=== PATIENT | male | born 1990 | race Asian ===

== ENCOUNTER 2019-08-18 13:41 | Emergency (ER) | payer BC, OTHER ==
[~2019-08-18] VITALS: Ht 180.3 cm; Wt 88.5 kg
[2019-08-18 14:12] VITALS: BP 110/71
[2019-08-18 14:46] VITALS: BP 110/71
--- NOTE | 2019-08-18 14:48 | Emergency Room Report ---
History of Present Illness General Chief Complaint: Chest Pain Source: Patient Present Illness HPI Patient presents with complaints of pain that he felt in the left upper chest area last night is while he was going to sleep a sharp shooting pain lasted for few seconds Patient denies any pleurisy denies any shortness of breath denies any discomfort this morning or throughout the day today Denies any back or flank pain Denies any recent trauma Denies any change with movement or exertion Allergies: Coded Allergies: No Known Allergies (Unverified , 08/18/19) COVID-19 Screening Contact w/high risk pt: No Recent Travel to affected area: No Experienced COVID-19 symptoms?: No COVID-19 Testing performed DIE MAKER STAMPING: No Patient History Past Medical History: see triage record Reviewed Nursing Documentation: PMH: Agreed; PSxH: Agreed Nursing Documentation-PMH Past Medical History: No History, Except For Review of Systems All Other Systems: negative except mentioned in HPI Physical Exam Vital Signs Date Time Temp Pulse Resp B/P (MAP) Pulse Ox O2 Delivery O2 Flow Rate FiO2 08/18/19 13:48 98.2 60 20 110/71 (84) 96 Room Air Sp02 EP Interpretation: reviewed, normal General Appearance: well appearing, no apparent distress Head: normocephalic, atraumatic Eyes: bilateral eye PERRL, bilateral eye EOMI ENT: hearing grossly normal, normal pharynx, TMs + canals normal, uvula midline Neck: full range of motion, supple, no meningismus, no bony tend Respiratory: lungs clear, normal breath sounds, no rhonchi, no respiratory distress, no retraction, no accessory muscle use Cardiovascular #1: normal peripheral pulses, regular rate, rhythm, no edema, no gallop, no JVD, no murmur Gastrointestinal: normal bowel sounds, non tender, soft, no mass, no organomegaly, non-distended, no guarding, no hernia, no pulsatile mass, no rebound Genitourinary: no CVA tenderness Musculoskeletal: normal inspection Neurologic: motor strength/tone normal, bedspread inspector III-XII nml as tested, oriented x3 , sensory intact, responsive Psychiatric: mood/affect normal Skin: no rash Lymphatic: normal inspection, no adenopathy Medical Decision Making Diagnostic Impression: Primary Impression: Chest pain ER Course Patient is a fairly complex patient with multiple differential to consideration including but not limited to cardiac cardiopulmonary and vascular emergencies Patient has a benign medical evaluation cardiac factor score is low Patient's EKG and chest x-ray are normal again remains asymptomatic throughout his stay here patient did ask me regarding anxiety and possible association with this pain We did discuss regarding multiple other medical conditions that need to be ruled out Prior to calling this anxiety patient understands this and will follow closely EKG Diagnostic Results Rate: normal Rhythm: NSR ST Segments: no acute changes Rhythm Strip Diag. Results EP Interpretation: yes Rate: 60 Rhythm: NSR, no PVC's, no ectopy Chest X-Ray Diagnostic Results Chest X-Ray Diagnostic Results : Chest X-Ray Ordered: Yes # of Views/Limited/Complete: 1 View Indication: Chest Pain EP Interpretation: Yes Interpretation: no consolidation, no effusion, no pneumothorax Impression: No acute disease Electronically Signed by: Reji Velazco DO Last Vital Signs Date Time Temp Pulse Resp B/P (MAP) Pulse Ox O2 Delivery O2 Flow Rate FiO2 08/18/19 14:12 98.2 60 20 110/71 96 Room Air Status: improved Disposition: HOME, SELF-CARE Condition: Improved [facility]: [facility] Patient Instructions: Nonspecific Chest Pain Additional Instructions: Patient is provided with the discharge instructions notified to follow up with primary doctor in the next 2-3 days otherwise return to the er with any worsening symptoms. Please note that this report is being documented using [employer] technology. This can lead to erroneous entry secondary to incorrect interpretation by the dictating instrument. Reji Velazco DO Aug 18, 2019 14:48
--- NOTE | 2019-08-18 19:00 | Diagnostic Imaging Report ---
Indication: Chest pain Technique: One view of the chest Comparison: none Findings: Lungs and pleural spaces are clear. Heart size is normal. Impression: No acute process
== END 2019-08-18 14:45 | disposition home or self-care (01) ==
LOC: EMR 14:40
DX: R07.9 Chest pain, unspecified (principal)
CPT/HCPCS: 71045; 93005; 99283

== ENCOUNTER 2020-02-17 20:05 | Emergency (ER) | payer BC, OTHER ==
[~2020-02-17] VITALS: Ht 182.9 cm; Wt 104.3 kg
[2020-02-17] MEDS ORDERED: AMOXIL250 MG ORAL (20:16)
[2020-02-17 20:55] VITALS: BP 124/71
[2020-02-17] MEDS ORDERED: DEBROX15 M1 LEFT EAR (21:02)
[2020-02-17] MEDS ORDERED: AUGMENTIN 875-1 EAC1 ORAL (21:02)
[2020-02-17 21:10] VITALS: BP 122/80
--- NOTE | 2020-02-22 00:15 | Emergency Room Report ---
History of Present Illness General Chief Complaint: Earache Source: Patient Present Illness HPI 29-year-old male presents to ED complaining of right ear pain. Having pain for the last few weeks. Dull, 8 out of 10, radiating to the jaw. Denies fevers or chills. Denies neck pain or neck stiffness. Was seen by PMD and prescribed antibiotics. Currently taking amoxicillin and almost done with the prescriptio n. No other aggravating relieving factors. Denies any other associated symptoms Allergies: Coded Allergies: No Known Allergies (Unverified , 08/18/19) COVID-19 Screening Contact w/high risk pt: No Recent Travel to affected area: No Experienced COVID-19 symptoms?: No COVID-19 Testing performed RAILROAD DISPATCHER: No Patient History Past Medical History: none Past Surgical History: none Pertinent Family History: none Social History: Denies: smoking, alcohol use, drug use Immunizations: UTD Reviewed Nursing Documentation: PMH: Agreed; PSxH: Agreed Nursing Documentation-PMH Past Medical History: No History, Except For Review of Systems All Other Systems: negative except mentioned in HPI Physical Exam Sp02 EP Interpretation: reviewed, normal General Appearance: no apparent distress, alert, GCS 15, non-toxic Head: normocephalic, atraumatic Eyes: bilateral eye normal inspection, bilateral eye PERRL ENT: hearing grossly normal, normal pharynx, no angioedema, normal voice, other - R TM boggy. cerumen impaction noted Neck: full range of motion, supple/symm/no masses Respiratory: chest non-tender, lungs clear, normal breath sounds, speaking full sentences Cardiovascular #1: regular rate, rhythm, no edema Cardiovascular #2: 2+ carotid (R), 2+ carotid (L), 2+ radial (R), 2+ radial (L), 2+ dorsalis pedis (R), 2+ dorsalis pedis (L) Gastrointestinal: normal bowel sounds, non tender, soft, non-distended, no guarding, no rebound Rectal: deferred Genitourinary: normal inspection, no CVA tenderness Musculoskeletal: back normal, normal range of motion, gait/station normal, non- tender Neurologic: alert, motor strength/tone normal, oriented x3, sensory intact, responsive, speech normal Psychiatric: judgement/insight normal, memory normal, mood/affect normal, no suicidal/homicidal ideation Reflexes: 3+ bicep (R), 3+ bicep (L), 3+ tricep (R), 3+ tricep (L), 3+ knee (R), 3+ knee (L) Lymphatic: no adenopathy Medical Decision Making Diagnostic Impression: Primary Impression: Cerumen impaction Qualified Codes: H61.21 - Impacted cerumen, right ear Additional Impression: Otitis media Qualified Codes: H66.41 - Suppurative otitis media, unspecified, right ear ER Course Hospital Course 29-year-old M presents to ED with pain R ear. Differential diagnoses include: TM perforation, otitis externa, otitis media Clinical course Patient placed on stretcher. After initial history, physical exam reveals a young male in no acute distress. R TM appears boggy, erythematous. Cerumen impaction noted. Left TM unremarkable Findings with patient. About to complete his amoxicillin prescription we will switch to Augmentin. I will prescribe Debrox. Recommend ENT evaluation. States he has a PMD. Safe for discharge Diagnosis - otitis media Stable and discharged to home with Rx Carbamide peroxide, Augmentin. Followup with PMD. Return to ED if symptoms recur or worsen Status: improved Disposition: HOME, SELF-CARE Condition: Stable Scripts Carbamide Peroxide (DEBROX) 15 Ml Drops 10 DROP LEFT EAR TWICE A DAY for 4 Days, ML 0 Refills Prov: Jj Portillo MD 02/17/20 Amoxicillin/Potassium Clav 875-125* (AUGMENTIN 875-125 TABLET*) 1 Each Tablet 1 TAB ORAL TWICE A DAY, #20 TAB Prov: Jj Portillo MD 02/17/20 Referrals: OMDESTO DUARTE (PCP) Patient Instructions: Otitis Media, Adult, [id number] Jj Portillo MD Feb 22, 2020 00:15
== END 2020-02-17 21:10 | disposition home or self-care (01) ==
LOC: EMR 20:30
DX: H61.21 Impacted cerumen, right ear (principal); H66.41 Suppurative otitis media, unspecified, right ear
CPT/HCPCS: 99282